=== PATIENT | female | born 1980 | race Caucasian/White ===

== ENCOUNTER → 2016-09-02 | Outpatient (CLI) | payer BC | LOC: OD 11:51 | PROVIDERS: ATTEND Surgery | DX: N63 Unspecified lump in breast (principal); N64.52 Nipple discharge | CPT/HCPCS: 36415; 84146 ==

== ENCOUNTER 2016-09-24 10:29 | Day surgery (SDC) | payer BC ==
[2016-09-18 10:21] LABS: HEMATOCRIT 45.6 % (36.0-47.0); HEMOGLOBIN 15.5 g/dL (12.0-15.5); HGB HCT DIFFERENCE 0.9; MEAN CORPUSCULAR HEMOGLOBIN 32.2 pg (27.0-33.4); MEAN CORPUSCULAR HGB CONC 33.9 g/dL (32.0-36.0); MEAN CORPUSCULAR VOLUME 95 fl (80-97); WHITE BLOOD COUNT 7.6 10^3/uL (4.0-10.5)
[~2016-09-24 10:29] MED LIST: BUPIVACAINE HCL 0.25 % INJ/PF (2.5 MG/1 ML) 30 ML VIAL ONE; CEFAZOLIN SODIUM 1 GM in DEXTROSE 5%-WATER 50 ML IV PRN; LACTATED RINGERS 1000 ML IV PRN; LIDOCAINE 0.5% INJ-PF (5 MG/ML) 50 ML SDV SUBCUT PRN; NORMAL SALINE 1000 ML 1,000 ML IV PRN
[2016-09-24] MEDS ORDERED: ONDANSETRON HCL INJ/PF 4 MG/2 ML SDV ONE (12:18)
[2016-09-24] MEDS ORDERED: MIDAZOLAM 2 MG/2 ML INJ ONE (12:18)
[2016-09-24] MEDS ORDERED: HYDROMORPHONE HCL INJ/PF 2 MG/ML AMPULE ONE (12:18)
[2016-09-24] MEDS ORDERED: PROPOFOL INJ 200 MG/20 ML VIAL IV ONE (12:18)
[2016-09-24] MEDS ORDERED: FENTANYL CITRATE INJ/PF 100 MCG/2 ML AMPUL IV PRN ×3 (12:59)
[2016-09-24] MEDS ORDERED: MORPHINE SULFATE 10 MG/ML INJ IV PRN (12:59)
[2016-09-24] MEDS ORDERED: DIPHENHYDRAMINE HCL 50 MG/ML VIAL IV PRN (12:59)
[2016-09-24] MEDS ORDERED: MEPERIDINE HCL/PF INJ 25 MG/1 ML DISP.SYRIN IV PRN (12:59)
[2016-09-24] MEDS ORDERED: PROMETHAZINE HCL INJ 25 MG/1 ML VIAL IV PRN ×2 (12:59)
--- NOTE | 2016-09-24 13:30 | Operative Report ---
Operative Report DATE OF SURGERY: 09/24/16 PREOPERATIVE DIAGNOSIS: Left breast mass POSTOPERATIVE DIAGNOSIS: Left breast mass OPERATION: Left breast mass excision SURGEON: KOKO VERGARA ANESTHESIA: GA TISSUE REMOVED OR ALTERED: Left breast mass COMPLICATIONS: None ESTIMATED BLOOD LOSS: minimal INTRAOPERATIVE FINDINGS: Proximal a 2 cm left breast mass at the 9 o'clock position PROCEDURE: Informed consent was obtained. Patient was brought to the operating room placed on the operating room table in the supine position. After satisfactory induction of general anesthesia patient's left breast was prepped and draped in usual sterile fashion. The mass laid at the 9 oclock position and measured about 2 cm in size. A transverse incision was made overlying the mass at the patient's left the medial breast at the 9 o'clock position. Dissection was carried down and rim of the normal breast tissue and fat was taken along with the the underlying mass. The specimen was oriented with a short stitch marking superior border and long stitch marking lateral border. The mass was submitted to pathology. Palpation revealed no other masses after the resection. Hemostasis was achieved with electrocautery. Hemostasis appeared excellent at the end of the case. The wound was closed with deep dermal interrupted Vicryl sutures followed by running subcuticular Prolene pullout suture. Local anesthetic was injected. Patient tolerated procedure well with no apparent competitions and was taken to the recovery area in stable condition.
[2016-09-24] MEDS ORDERED: ONDANSETRON HCL INJ/PF 4 MG/2 ML SDV IV PRN (13:32)
[2016-09-24] MEDS ORDERED: RINGERS SOLUTION,LACTATED 1,000 ML IV PRN (13:32)
[2016-09-24] MEDS ORDERED: OXYCODONE-ACETAMINOPHEN 5-325 MG TABLET PO PRN (13:32)
--- NOTE | 2016-09-24 13:32 | PDOC DISCHARGE SUMMARY ---
Discharge Summary (SDC) - Discharge Final Diagnosis: Left breast mass Date of Surgery: 09/24/16 Discharge Date: 09/24/16 Condition: Good Forms: ASU Anesthesia D/C Instruction, Discharge POC-Surgical Service Treatment or Instructions: Left breast mass excisional biopsy. May discharge patient home when met discharge criteria. Follow-up with me next Wednesday. Stay active but avoid strenuous activity. May shower tomorrow night. Prescriptions: Oxycodone HCl/Acetaminophen [Percocet 5-325 mg Tablet] 1 tab PO ASDIR PRN #25 tablet PRN Reason: Referrals: KOKO VERGARA MD [ACTIVE STAFF] - Discharge Diet: As Tolerated Discharge Activity: Activity As Tolerated - Stay active but avoid strenuous activity. Report the Following to Your Physician Immediately: Fever over 101 Degrees, Unusual Bleeding, Redness, Drainage-Foul Smelling
[2016-09-24 15:32] VITALS: BP 131/89
== END 2016-09-24 15:15 | disposition home or self-care (01) ==
LOC: OROUT 10:29
PROVIDERS: ATTEND Surgery
PROC: 0HBU0ZX Excision of Left Breast, Open Approach, Diagnostic (ICD-10-PCS; principal; 2016-09-24 12:30)
DX: N63 Unspecified lump in breast (principal); Z88.0 Allergy status to penicillin; Z88.3 Allergy status to other anti-infective agents; D24.2 Benign neoplasm of left breast; N60.42 Mammary duct ectasia of left breast; N60.32 Fibrosclerosis of left breast; R92.0 Mammographic microcalcification found on diagnostic imaging of breast; N60.22 Fibroadenosis of left breast; R01.1 Cardiac murmur, unspecified
CPT/HCPCS: 36415 ×2; 84703; 85027; 88307 ×2; 88342; 19101; J2250; J0690; J1170; J2405; J2704; 400